=== PATIENT | female | born 1985 | race American Indian/Alaskan Native ===

== ENCOUNTER 2017-04-25 11:40 | Inpatient (IN) | payer MEDICARE ==
[2017-04-25 12:41] LABS: Anion Gap 17 mmol/L; Blood Urea Nitrogen 14 mg/dL (7-17); Calcium 9.3 mg/dL (8.4-10.2); Carbon Dioxide 24 mmol/L (22-30); Glucose 93 mg/dL (65-100); Potassium 4.3 mmol/L (3.6-5.0); Sodium 140 mmol/L (137-145)
[2017-04-25 12:46] LABS: Eosinophils % (Auto) 0.5 % (0.0-4.3); Hematocrit 39.4 % (30.3-42.9); Hemoglobin 13.5 gm/dl (10.1-14.3); Mean Corpuscular HGB Conc 34 % (30-34); Mean Corpuscular Hemoglobin 31 pg (28-32); Mean Corpuscular Volume 92 fl (79-97); Platelet Count 210 K/mm3 (140-440); Red Blood Count 4.29 M/mm3 (3.65-5.03); Red Cell Distribution Width 12.5 % (13.2-15.2); White Blood Count 3.7 K/mm3 (4.5-11.0)
[2017-04-25] MEDS ORDERED: MORPHINE IV ONE (13:49)
[2017-04-25] MEDS ORDERED: NITRO-BID 2% TP ONE (13:49)
[2017-04-25] MEDS ORDERED: ZOFRAN IV ONE (13:49)
[2017-04-25] MEDS ORDERED: ASPIRIN PO ONE (13:50)
--- NOTE | 2017-04-25 14:15 | Emergency Department Report ---
HPI - General Chief Complaint: Chest Pain Time Seen by Provider: 04/25/17 13:48 - HPI HPI: Room 37 The patient is a 31-year-old female presenting with chief complaint chest pain. The patient states yesterday she developed substernal chest tightness that has been intermittent. Patient does admit to shortness of breath but denies nausea/vomiting or diaphoresis. Patient denies pleurisy, cough or fever. Patient denies any recent flights or long car trips. The patient states EMS was called yesterday and performed an EKG. The patient did not come to the hospital but states she has had the chest tightness intermittently since yesterday. Patient states she's never had a stress test or cardiac catheterization Location: Chest Duration: Intermittent since yesterday Quality: Tightness Severity: 5-6/10 Modifying factors: [see above] Context: [see above] Mode of transportation: Unknown ED Past Medical Hx - Past Medical History Previous Medical History?: Yes Additional medical history: Vaginal dleivery x 2 - Surgical History Past Surgical History?: Yes Additional Surgical History: x 1 - Family History Family history: no significant - Social History Smoking Status: Current Every Day Smoker Substance Use Type: None (denies illicit drug use), Alcohol (occasional) - Medications Home Medications: Home Medications Medication Instructions Recorded Confirmed Last Taken Type traMADol [Ultram 50 MG tab] 50 mg PO Q6HR PRN #20 tablet 08/17/13 Unknown Rx ED Review of Systems ROS: Stated complaint: CHEST PAIN Other details as noted in HPI Comment: All other systems reviewed and negative Constitutional: denies: chills, diaphoresis, fever Eyes: denies: eye pain, eye discharge, vision change ENT: denies: ear pain, throat pain Respiratory: shortness of breath Cardiovascular: chest pain Gastrointestinal: denies: nausea, vomiting Genitourinary: denies: urgency, dysuria, discharge Musculoskeletal: denies: back pain, joint swelling, arthralgia Skin: denies: rash, lesions Neurological: denies: headache, weakness, paresthesias Psychiatric: denies: anxiety, depression Hematological/Lymphatic: denies: easy bleeding, easy bruising Physical Exam - Physical Exam Vital Signs: Vital Signs 04/25/17 04/25/17 11:56 12:46 Temperature 98.6 F Pulse Rate 82 Respiratory 18 16 Rate Blood Pressure 109/84 O2 Sat by Pulse 98 98 Oximetry Physical Exam: GENERAL: The patient is well-developed well-nourished female sitting on stretcher not appearing to be in acute distress. [] HEENT: Normocephalic. Atraumatic. Extraocular motions are intact. Patient has moist mucous membranes. NECK: Supple. Trachea midline CHEST/LUNGS: Clear to auscultation. There is no respiratory distress noted. HEART/CARDIOVASCULAR: Regular. There is no tachycardia. There is no gallop rub or murmur. ABDOMEN: Abdomen is soft, nontender. Patient has normal bowel sounds. There is no abdominal distention. SKIN: There is no rash. There is no edema. There is no diaphoresis. NEURO: The patient is awake, alert, and oriented. The patient is cooperative. The patient has normal speech MUSCULOSKELETAL: There is no evidence of acute injury. ED Course Vital Signs 04/25/17 04/25/17 11:56 12:46 Temperature 98.6 F Pulse Rate 82 Respiratory 18 16 Rate Blood Pressure 109/84 O2 Sat by Pulse 98 98 Oximetry ED Medical Decision Making - Lab Data Result diagrams: 04/25/17 12:10 04/25/17 12:10 Laboratory Tests 04/25/17 04/25/17 04/25/17 12:10 12:10 14:01 WBC 3.7 L RBC 4.29 Hgb 13.5 Hct 39.4 MCV 92 MCH 31 MCHC 34 RDW 12.5 L Plt Count 210 Lymph % (Auto) 40.7 H Lucas % (Auto) 8.6 H Eos % (Auto) 0.5 Baso % (Auto) 1.0 Lymph # 1.5 Lucas # 0.3 Eos # 0.0 Baso # 0.0 Seg Neutrophils % 49.2 Seg Neutrophils # 1.8 D-Dimer 146.56 Sodium 140 Potassium 4.3 Chloride 103.0 Carbon Dioxide 24 Anion Gap 17 BUN 14 Creatinine 0.8 Estimated GFR > 60 BUN/Creatinine Ratio 17.50 Glucose 93 Calcium 9.3 Troponin T < 0.010 - EKG Data -: EKG Interpreted by Hi EKG shows normal: sinus rhythm Rate: normal - EKG Data When compared to previous EKG there are: previous EKG unavailable Interpretation: nonspecific ST-T wave camacho (biphasic T-wave in lead V2) - Radiology Data Radiology results: image reviewed (chest x-ray) interpreted by me: Chest x-ray-no focal infiltrates, no pneumothorax - Differential Diagnosis ACS, pericarditis, GERD, PE, anxiety Critical care attestation.: If time is entered above; I have spent that time in minutes in the direct care of this critically ill patient, excluding procedure time. ED Disposition Clinical Impression: Chest pain Disposition: OP ADMIT IP TO THIS HOSP Is pt being admited?: Yes Does the pt Need Aspirin: Yes Condition: Fair Instructions: Chest Pain (ED) Referrals: PRIMARY CARE, [Primary Care Provider] - 3-5 Days Time of Disposition: 15:34 (hospitalist paged)
--- NOTE | 2017-04-25 16:30 | XRay Report ---
FINAL REPORT EXAM: XR CHEST 1V AP HISTORY: chest pain TECHNIQUE: AP portable view of the chest PRIORS: None. FINDINGS: Lines, tubes, and devices: N/A Lungs and pleura: Trachea is normal in position. Lungs are clear of infiltrate, pleural effusion, vascular congestion, or pneumothorax. Cardiomediastinal silhouette: Cardiac and mediastinal silhouettes are unremarkable. Other: Bony structures are intact. IMPRESSION: No acute cardiopulmonary process seen.
--- NOTE | 2017-04-25 17:28 | History and Physical Report ---
History of Present Illness Chief complaint: My chest was hurting History of present illness: 31 YO Female with Nicotine Dependence presents to ED for evaluation. Pt states that she has experienced pain in her chest for the past 2 days with worsening symptoms over the past 10 hours. Pain is 5-6/10, intermittent, localized to the right chest, nonradiating, associated with shortness of breath, not worsened with exertion, or relieved with rest. Pt denies fever, chills, palpitations, productive cough, NVD, prolonged travel/immobility, individual/family history of DVT/PE, hemoptysis, known exposure to TB, unintentional weight loss, night sweats, bone pain, skin rash, or recent ill contacts. Past History Past Medical History: other (nicotine Dependence) Past Surgical History: Other (D&C) Social history: single, smoking. denies: alcohol abuse, prescription drug abuse , IV drug use Family history: CAD, hypertension Medications and Allergies Allergies Allergy/AdvReac Type Severity Reaction Status Date / Time No Known Allergies Allergy Unverified 08/17/13 12:02 Home Medications Medication Instructions Recorded Confirmed Last Taken Type traMADol [Ultram 50 MG tab] 50 mg PO Q6HR PRN #20 tablet 08/17/13 Unknown Rx Review of Systems Constitutional: no weight loss, no weight gain, no fever, no chills, no sweats Ears, nose, mouth and throat: no ear pain, no ear discharge, no tinnitis, no decreased hearing, no nose pain, no nasal congestion, no nasal discharge Breasts: no change in shape, no swelling, no mass Cardiovascular: chest pain, shortness of breath, no orthopnea, no palpitations, no rapid/irregular heart beat, no edema, no syncope, no lightheadedness, no dyspnea on exertion, no paroxysmal nocturnal dyspnea, no claudication, no phlebitis, no leg edema, no decreased exercise tolerance Respiratory: no cough, no cough with sputum, no excessive sputum, no hemoptysis Gastrointestinal: no abdominal pain, no nausea, no vomiting, no diarrhea, no constipation, no change in bowel habits Genitourinary Female: no pelvic pain, no flank pain, no menorrhagia, no dysuria Rectal: no pain, no incontinence, no bleeding Musculoskeletal: no neck stiffness, no neck pain, no shooting arm pain, no arm numbness/tingling, no low back pain, no shooting leg pain, no leg numbness/ tingling Integumentary: no rash, no pruritis, no redness, no sores, no wounds, no jaundice, no boils, no blisters Neurological: no head injury, no transient paralysis, no paralysis, no weakness , no parathesias, no numbness, no tingling, no seizures, no syncope, no tremors Psychiatric: no anxiety, no memory loss, no change in sleep habits, no sleep disturbances, no insomnia, no hypersomnia, no change in appetite, no change in libido Endocrine: no cold intolerance, no heat intolerance, no polyphagia, no excessive thirst, no polydipsia, no polyuria, no nocturia, no excessive sweating Hematologic/Lymphatic: no easy bruising, no easy bleeding Allergic/Immunologic: no urticaria, no allergic rhinitis, no wheezing Exam - Constitutional Vitals: Temp Pulse Resp BP Pulse Ox 98.6 F 69 16 109/69 98 04/25/17 11:56 04/25/17 16:54 04/25/17 12:46 04/25/17 16:54 04/25/17 16:54 General appearance: Present: no acute distress, well-nourished - EENT Eyes: Present: PERRL ENT: hearing intact, clear oral mucosa - Neck Neck: Present: supple, normal ROM - Respiratory Respiratory effort: normal Respiratory: bilateral: CTA - Cardiovascular Heart Sounds: Present: S1 & S2. Absent: rub, click - Extremities Extremities: pulses symmetrical, No edema Peripheral Pulses: within normal limits - Abdominal General gastrointestinal: Present: soft, non-tender, non-distended, normal bowel sounds Female genitourinary: Present: normal - Integumentary Integumentary: Present: clear, warm, dry - Musculoskeletal Musculoskeletal: gait normal, strength equal bilaterally - Psychiatric Psychiatric: appropriate mood/affect, intact judgment & insight - Neurologic Neurologic: CNII-XII intact, moves all extremities Results - Labs CBC & Chem 7: 04/25/17 12:10 04/25/17 12:10 Labs: Abnormal lab results 04/25/17 Range/Units 12:10 WBC 3.7 L (4.5-11.0) K/mm3 RDW 12.5 L (13.2-15.2) % Lymph % (Auto) 40.7 H (13.4-35.0) % [place] % (Auto) 8.6 H (0.0-7.3) % Assessment and Plan - Patient Problems (1) ACS (acute coronary syndrome) Current Visit: Yes Status: Acute Plan to address problem: Serial cardiac enzymes, ekg, telemetry, cardiology consulted, echo, stress test , d dimer (2) Nicotine dependence Current Visit: Yes Status: Acute Qualifiers: Nicotine product type: N Substance use status: S Plan to address problem: Pt counseled, no quit date at this time. (3) Angina at rest Current Visit: Yes Status: Acute Plan to address problem: CTA chest, serial cardiac enzymes, telemetry, (4) DVT prophylaxis Current Visit: Yes Status: Acute
[2017-04-25] MEDS ORDERED: MILK OF MAGNESIA PO PRN (17:35)
[2017-04-25] MEDS ORDERED: TYLENOL PO PRN (17:35)
[2017-04-25] MEDS ORDERED: DULCOLAX PR PRN (17:35)
[2017-04-25] MEDS ORDERED: ZOFRAN IV PRN (17:35)
[2017-04-25] MEDS ORDERED: SODIUM CHLORIDE FLUSH SYRINGE 10 ML IV PRN (17:35)
[2017-04-25] MEDS ORDERED: PROVENTIL IH PRN (17:35)
[2017-04-25] MEDS ORDERED: NACL ONE (17:57)
[2017-04-25] MEDS ORDERED: PERCOCET 5/325 ONE (18:14)
[2017-04-25] MEDS: PERCOCET 5/325 PO PRN ×2 (18:16→23:36)
--- NOTE | 2017-04-25 19:19 | Cat Scan Report ---
FINAL REPORT EXAM: CT ANGIO CHEST HISTORY: chest pain TECHNIQUE: Enhanced CT of the chest at 2.5 mm axial intervals following a pulmonary embolism protocol. Coronal and sagittal imaging were also obtained. Oblique coronal MIP projections were obtained. Contrast: 100 ml of Omnipaque 350 given IV. PRIORS: CXR 04/25/2017 FINDINGS: There is no evidence for pulmonary embolism in the main pulmonary artery, right and left pulmonary arteries or their major distributions. However, CT does not exclude distal pulmonary emboli. Otherwise, the lung parenchyma are expanded and clear with no evidence for parenchymal nodules, infiltrates, congestion, or pleural effusion. There is no evidence for mediastinal, hilar, or axillary adenopathy. Residual thymus is noted in the anterior mediastinum. Cardiovascular structures are within normal limits. No evidence for ventricular chamber enlargement is seen. Images through the lung bases include the upper abdomen which show no abnormalities of the visualized abdominal viscera. Bony structures demonstrate no focal abnormalities. IMPRESSION: No evidence for pulmonary embolism. Negative CT of the chest.
[2017-04-26 06:05] VITALS: BP 108/62
--- NOTE | 2017-04-26 14:59 | Discharge Summary ---
Providers - Providers Date of Admission: 04/25/17 17:35 Date of discharge: 04/26/17 Attending physician: RICKY CHINCHILLA MD Primary care physician: [employer] Hospitalization Reason for admission: chest pain Condition: Stable Pertinent studies: cardiac stress test: negative for acute ischemia. Hospital course: History of present illness: 31 YO Female with Nicotine Dependence presents to ED for evaluation. Pt states that she has experienced pain in her chest for the past 2 days with worsening symptoms over the past 10 hours. Pain is 5-6/10, intermittent, localized to the right chest, nonradiating, associated with shortness of breath, not worsened with exertion, or relieved with rest. Patient was admitted and cardiac enzymes were negative, EKG NSR. Cardiac stress test was done and negative. Patient's chest pain resolved. patient is active tobacco user and I have counselled and given resources to help her quit smoking. patient was hemodynamically stable and discharged home in a stable condition. Disposition: DC- TO HOME OR SELFCARE Time spent for discharge: 31 minutes - Discharge Diagnoses (1) Angina at rest Status: Acute (2) Chest pain Status: Acute Qualifiers: Chest pain type: C Ischemic chest pain type: I (3) Nicotine dependence Status: Acute Qualifiers: Nicotine product type: N Substance use status: S Core Measure Documentation - Palliative Care Palliative Care/ Comfort Measures: Not Applicable - Core Measures Any of the following diagnoses?: none Exam - Physical Exam Narrative exam: Not in cardiopulmonary distress. The patient appeared well nourished and normally developed. Vital signs as documented. Head exam is unremarkable. No scleral icterus . Neck is without jugular venous distension, thyromegaly, or carotid bruits. Lungs are clear to auscultation. Cardiac exam reveals regular rate and Rhythm. First and second heart sounds normal. No murmurs, rubs or gallops. Abdominal exam reveals normal bowel sounds, no masses, no organomegaly and no aortic enlargement. Extremities are nonedematous and both femoral and pedal pulses are normal. BATTERY [employer]GER TESTER: Alert and oriented 3. No focal weakness. - Constitutional Vitals: Temp Pulse Resp BP Pulse Ox 98.3 F 61 16 108/62 100 04/26/17 06:03 04/26/17 10:00 04/26/17 06:03 04/26/17 06:03 04/26/17 06:03 Plan Activity: no restrictions Weight Bearing Status: Full Weight Bearing Diet: low cholesterol Special Instructions: smoking cessation Follow up with: PRIMARY CARE, [Primary Care Provider] - 3-5 Days Forms: Work/School Release Form Prescriptions: oxyCODONE /ACETAMINOPHEN [Percocet 5/325 mg] 1 tab PO Q6H PRN #10 tablet PRN Reason: Pain, Moderate (4-6)
--- NOTE | 2017-04-26 20:27 | Consultation ---
History of Present Illness Consult date: 04/26/17 Consult reason: chest pain History of present illness: 31-year-old woman who presented to the hospital with nonexertional, poorly characterized chest pain. She underwent a rule out cardiac workup. EKG was normal sinus rhythm, normal ECG with no ischemic changes. Serial cardiac enzymes were negative. Ultimately, she underwent an exercise stress test during which she completed 7 minutes of a Magnus protocol, achieving 8 metastases. There was no chest pain. Test was stopped for fatigue. ECG revealed no ischemic changes and no significant dysrhythmias. The stress test was negative. Past History Past Medical History: other (nicotine Dependence) Past Surgical History: Other (D&C) Social history: single, smoking. denies: alcohol abuse, prescription drug abuse , IV drug use Family history: CAD, hypertension Medications and Allergies Allergies Allergy/AdvReac Type Severity Reaction Status Date / Time No Known Allergies Allergy Unverified 08/17/13 12:02 Home Medications Medication Instructions Recorded Confirmed Last Taken Type oxyCODONE /ACETAMINOPHEN [Percocet 1 tab PO Q6H PRN #10 tablet 04/26/17 Unknown Rx 5/325 mg] Review of Systems Cardiovascular: chest pain, shortness of breath, no orthopnea, no palpitations, no rapid/irregular heart beat, no edema, no syncope, no lightheadedness Physical Examination Vital Signs Temp Pulse Resp BP Pulse Ox 98.6 F 82 18 109/84 98 04/25/17 11:56 04/25/17 11:56 04/25/17 11:56 04/25/17 11:56 04/25/17 11:56 General appearance: no acute distress HEENT: Positive: PERRL Neck: Positive: neck supple Cardiac: Positive: Reg Rate and Rhythm Lungs: Positive: Decreased Breath Sounds Neuro: Positive: Grossly Intact Abdomen: Positive: Soft Female genitourinary: deferred Skin: Positive: Clear Extremities: Absent: edema Results 04/25/17 12:10 04/25/17 12:10 EKG interpretations - Telemetry EKG Rhythm: Sinus Rhythm Assessment and Plan - Patient Problems (1) Chest pain Status: Acute Qualifiers: Chest pain type: C Ischemic chest pain type: I Plan to address problem: The patient's chest pain is atypical, serial ECG is abnormal, serial cardiac enzymes are normal, and exercise ECG test was negative. Recommend that she stop smoking, and follows up with our office in the next 5-7 days, for final results of echocardiogram and further cardiac outpatient follow- up. Return to the emergency room immediately if any further chest pain.
--- NOTE | 2017-04-27 00:24 | Treadmill Report ---
EXERCISE STRESS TEST REPORT The patient exercised for 7 minutes with Magnus protocol, reaching stage 3 and achieving 8 METs. Peak heart rate was 139 beats per minute. Peak blood pressure was 144/90. There was no chest pain. Test was stopped for fatigue. Baseline ECG was sinus rhythm. With exercise, there were no ST changes of ischemia. No significant dysrhythmias were noted. CONCLUSION: 1. Below-average exercise capacity. 2. No chest pain. 3. No ST changes of ischemia. 4. No significant dysrhythmias. This is a negative exercise ECG test. JOB# [id number] CA/NTS
== END 2017-04-26 16:29 | disposition home or self-care (01) | DRG 311 ==
LOC: ED 11:40 → 4A 17:35
PROVIDERS: ADMIT Internal Medicine; ATTEND Internal Medicine
DX: I20.8 Other forms of angina pectoris (principal); F17.210 Nicotine dependence, cigarettes, uncomplicated; Z79.899 Other long term (current) drug therapy; Z82.49 Family history of ischemic heart disease and other diseases of the circulatory system; Z71.6 Tobacco abuse counseling
CPT/HCPCS: 36415; 71010; 71275; 80048; 81025; 84484; 85025; 85379; 93005; 93010; 93017; 93306; 96374; J2405; Q9967